=== PATIENT | male | born 1960 | race African-American/Black ===

== ENCOUNTER 2023-07-15 09:54 | Emergency (ER) | payer MEDICAID ==
[~2023-07-15] VITALS: Ht 190.5 cm; Wt 82.5 kg
[2023-07-15 10:07] VITALS: O2SAT 100
[2023-07-15 11:05] LABS: BASOPHILS % 0.7 % (0.0-2.0); EOSINOPHILS % 3.7 % (0.0-5.0); HEMATOCRIT. 40.9 % (42.0-52.0); HEMOGLOBIN. 14.2 g/dL (14.0-18.0); LYMPHOCYTES % 35.6 % (20.0-50.0); MEAN CORPUSCULAR HEMOGLOBIN 31.4 pg (28.0-32.0); MEAN CORPUSCULAR HGB CONC 34.8 g/dL (31.0-37.0); MEAN CORPUSCULAR VOLUME 90.3 fL (80.0-94.0); MEAN PLATELET VOLUME 6.7 fl (7.4-10.4); MONOCYTES % 7.4 % (2.0-8.0); NEUTROPHILS % 52.6 % (40.0-76.0); PLATELET 264 x1000/uL (130-400); RED BLOOD CELL COUNT 4.53 mill/uL (4.7-6.1); RED CELL DISTRIBUTION WIDTH 12.8 % (11.6-14.6); WHITE BLOOD COUNT 4.3 x1000/uL (4.5-11.0)
[2023-07-15 11:23] LABS: CALCIUM 9.3 mg/dL (8.7-10.4); CARBON DIOXIDE 31 mEq/L (21-32); CHLORIDE 103 mEq/L (98-107); GLUCOSE 144 mg/dL (70-105); SODIUM 138 mEq/L (136-145); UREA NITROGEN BLOOD 11 mg/dL (9-23)
[2023-07-15] MEDS ORDERED: METF-414 PO ×3 (11:34→11:39)
[2023-07-15] MEDS ORDERED: GABA-532 PO ×2 (11:34→11:39)
[2023-07-15 11:51] VITALS: BP 137/86; PULSE 94; RESP 16; TEMP 98.6
== END 2023-07-15 11:53 | disposition home or self-care (01) ==
LOC: ER 09:54
DX: E11.40 Type 2 diabetes mellitus with diabetic neuropathy, unspecified (principal)
CPT/HCPCS: 36415; 80048; 85025; 99283

== ENCOUNTER 2024-07-15 18:49 | Emergency (ER) | payer MEDICAID ==
[~2024-07-15 18:49] MED LIST: GABA-1180 PO; METF-414 PO
== END 2024-07-15 21:00 | disposition left against medical advice (07) ==
LOC: ER 18:49
DX: L02.31 Cutaneous abscess of buttock (principal); Z53.21 Procedure and treatment not carried out due to patient leaving prior to being seen by health care provider